=== PATIENT | female | born 1990 | race Two or more races ===

== ENCOUNTER 2022-08-28 19:02 | Emergency (ER) | payer MEDICAID ==
[~2022-08-28] VITALS: Ht 160 cm; Wt 48.1 kg
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
[2022-08-28] MEDS ORDERED: LORAZEPAM INJ 2 MG/ML VIAL IV ONE (21:30)
[2022-08-28] MEDS ORDERED: IV NS 0.9% 1,000 ML IV ONE (21:30)
[2022-08-28] MEDS ORDERED: LORAZEPAM INJ 2 MG/ML VIAL ONE (21:33)
[2022-08-28] MEDS ORDERED: HYDR-3895 PO (22:34)
--- NOTE | 2022-08-28 22:52 | NUR ---
IV removed. Catheter intact and site benign. Pressure and 4x4 applied to site. No bleeding noted. Written and verbal after care instructions given. Patient verbalizes understanding of instruction.
--- NOTE | 2022-08-29 05:55 | NUR ---
Patient discharged to home in stable condition. Written and verbal after care instructions given. Patient verbalizes understanding of instruction.
[2022-08-29 06:43] VITALS: BP 123/68
== END 2022-08-29 05:55 | disposition home or self-care (01) ==
LOC: ER 19:08
DX: F43.0 Acute stress reaction (principal); R00.0 Tachycardia, unspecified; I10 Essential (primary) hypertension; F41.9 Anxiety disorder, unspecified; Z88.8 Allergy status to other drugs, medicaments and biological substances
CPT/HCPCS: 99283; 96374; 96361; 93005 ×2; J2060; J7030